=== PATIENT | female | born 1995 ===

== ENCOUNTER 2021-06-08 02:38 | Emergency (ER) | payer OTHER ==
[2021-06-08 03:07] VITALS: RESP 18; TEMP 98.7
--- NOTE | 2021-06-08 03:33 | ED ---
Recheck HPI - General Stated Complaint: covid swab Time Seen by Provider: 06/08/21 02:40 Source: patient, RN notes reviewed, old records reviewed Mode of arrival: ambulatory Limitations: no limitations - History of Present Illness Initial Comments: This is a 25-year-old female DF for evaluation patient presenting for coronavirus testing, required coronavirus testing. Patient is asymptomatic has no complaints patient has no significant medical history takes no medications currently. No shortness of breath or chest MD Complaint: other (needs COVID test) -: minutes(s) Returns Today for: request for prescription Symptoms Since Prior Visit: no new symptoms Context: planned re-check Associated Symptoms: none Review of Systems ROS Statement: Those systems with pertinent positive or pertinent negative responses have been documented in the HPI. ROS Other: All systems not noted in ROS Statement are negative. Past Medical History Past Medical History: No Reported History History of Any Multi-Drug Resistant Organisms: None Reported Past Surgical History: No Surgical Hx Reported Smoking Status: Unknown if ever smoked Past Alcohol Use History: Unable to Obtain Past Drug Use History: Unable to Obtain General Exam Limitations: no limitations General appearance: alert, in no apparent distress Head exam: Present: atraumatic, normocephalic, normal inspection Eye exam: Present: normal appearance, PERRL, EOMI. Absent: scleral icterus, conjunctival injection, periorbital swelling ENT exam: Present: normal exam, mucous membranes moist Neck exam: Present: normal inspection. Absent: tenderness, meningismus, lymphadenopathy Respiratory exam: Present: normal lung sounds bilaterally. Absent: respiratory distress, wheezes, rales, rhonchi, stridor Cardiovascular Exam: Present: regular rate, normal rhythm, normal heart sounds. Absent: systolic murmur, diastolic murmur, rubs, gallop, clicks GI/Abdominal exam: Present: soft, normal bowel sounds. Absent: distended, tenderness, guarding, rebound, rigid Extremities exam: Present: normal inspection, full ROM, normal capillary refill. Absent: tenderness, pedal edema, joint swelling, calf tenderness Back exam: Present: normal inspection Neurological exam: Present: alert, oriented X3, CN II-XII intact Psychiatric exam: Present: normal affect, normal mood Skin exam: Present: warm, dry, intact, normal color. Absent: rash Course Vital Signs 06/08/21 02:58 Temperature 98.7 F Pulse Rate 74 Respiratory 18 Rate Blood Pressure 132/87 O2 Sat by Pulse 99 Oximetry - Reevaluation(s) Reevaluation #1: 06/08/21 03:32 Medical record is reviewed Reevaluation #2: 06/08/21 03:32 patient informed results and questions answered Medical Decision Making - Medical Decision Making 25 female with normal exam negative for coronavirus and patient can be discharged home - Lab Data Lab Results 06/08/21 Range/Units 02:56 Coronavirus (PCR) Not Detected (Not Detectd) Disposition Clinical Impression: Normal exam Disposition: HOME SELF-CARE Condition: Good Instructions (If sedation given, give patient instructions): Normal Exam (ED) Is patient prescribed a controlled substance at d/c from ED?: No Referrals: None,Stated [Primary Care Provider] - 1-2 days
[2021-06-08 04:06] VITALS: BP 122/72; PULSE 64
== END 2021-06-08 04:06 | disposition home or self-care (01) ==
LOC: EC 02:38
DX: Z20.822 Contact with and (suspected) exposure to COVID-19 (principal)
CPT/HCPCS: 87635; 99282